=== PATIENT | male | born 1980 | race Caucasian/White ===

== ENCOUNTER 2017-06-21 21:08 | Emergency (ER) | payer OTHER ==
--- NOTE | 2017-06-21 21:12 | PDOC ---
Rapid Medical Evaluation Time Seen by Provider: 06/21/17 21:10 Medical Evaluation: 06/21/17 21:11 I have performed a brief in-person evaluation of this patient. The patient presents with a chief complaint of:lt thumb laceration while opening a can Pertinent physical exam findings: 2.5 cm lac to medial aspect of left 1st digit. Last tdap 3 yrs ago I have ordered the following:none The patient will proceed to the ED for further evaluation.
[2017-06-21 21:13] VITALS: BP 147/93; PULSE 85; TEMP 97.7; BMI 31.3
--- NOTE | 2017-06-21 22:18 | PDOC ---
History of Present Illness - General Chief Complaint: Laceration Stated Complaint: LACERATION Time Seen by Provider: 06/21/17 21:10 History Source: Patient Exam Limitations: No Limitations - History of Present Illness Initial Comments: 06/21/17 22:13 36 yr male with laceration to the left thumb on can of cat food. tetanus is UTD Past History - Past Medical History Home Medications: Ambulatory Orders Buprenorphine HCl [Subutex -] 8 mg PO TID 06/21/17 Sertraline HCl [Zoloft] 200 mg PO DAILY 06/21/17 COPD: No Other medical history: kidney stones - Suicide/Smoking/Psychosocial Hx Smoking History: Current every day smoker Number of Cigarettes Smoked Daily: 10 Information on smoking cessation initiated: No Review of Systems - Review of Systems Able to Perform ROS?: Yes Is the patient limited Maldivian proficient: No : No: Symptoms Reported Musculoskeletal: No: See HPI Integumentary: Yes: Symptoms Reported, See HPI Neurological: No: Symptoms reported *Physical Exam - Vital Signs Last Vital Signs Temp Pulse Resp BP Pulse Ox 97.7 F 85 18 147/93 98 06/21/17 21:12 06/21/17 21:12 06/21/17 21:12 06/21/17 21:12 06/21/17 21:12 - Physical Exam General Appearance: Yes: Nourished, Appropriately Dressed HEENT: positive: EOMI, [place] Musculoskeletal: positive: Normal Inspection Extremity: positive: Normal Capillary Refill, Other (left thumb laceration to the medial side of the thumb longitudinal , FROM nv intact no tendon damage) Integumentary: positive: Normal Color, Dry, Warm Neurologic: positive: Fully Oriented, Alert, Normal Mood/Affect, Normal Response , Motor Strength 5/5 Procedures - Laceration/Wound Repair Left Medial 1st digit Wound Length: to 2.5 cm Wound Explored: clean Wound's Depth, Shape: linear, flap Betadine Prep: Yes Anesthesia: 2% Lidocaine (digital block ) Wound Repaired With: Sutures Suture Size/Type: 4:0, nylon Number of Sutures: 4 Sterile Dressing Applied: Yes Medical Decision Making - Medical Decision Making 06/21/17 22:15 cc: finger lac nv intact sensation intact FROM of the thumb suture repair done pt tolerated well bulky finger dressing placed *DC/Admit/Observation/Transfer Diagnosis at time of Disposition: Thumb laceration Qualifiers: Encounter type: initial encounter Damage to nail status: without damage Foreign body presence: without foreign body Laterality: left Qualified Code(s): S61.012A - Laceration without foreign body of left thumb without damage to nail , initial encounter - Discharge Dispostion Disposition: HOME Condition at time of disposition: Good - Referrals - Patient Instructions Printed Discharge Instructions: DI for Laceration Repair Additional Instructions: keep clean and dry do not get wet keep the dressing in place for 48hrs then remove gently clean with warm water on a cotton ball dry completely apply the bacitracin keep covered when sleeping and at work let the wound air out if you are at home return to ER if any worsening symptoms return in 10 days for suture removal - Post Discharge Activity
== END 2017-06-21 22:21 | disposition home or self-care (01) ==
LOC: JERFT 21:08
PROC: 0JQK0ZZ Repair Left Hand Subcutaneous Tissue and Fascia, Open Approach (ICD-10-PCS; principal; 2017-06-21)
DX: S61.012A Laceration without foreign body of left thumb without damage to nail, initial encounter (principal); W26.8XXA Contact with other sharp object(s), not elsewhere classified, initial encounter; Y93.K9 Activity, other involving animal care; Y92.038 Other place in apartment as the place of occurrence of the external cause; Y99.8 Other external cause status
CPT/HCPCS: 12001-25; 99281-25

== ENCOUNTER 2017-07-25 13:32 | Emergency (ER) | payer OTHER ==
[2017-07-25 13:38] VITALS: BP 116/71; PULSE 87; TEMP 98.1; BMI 31.3
[2017-07-25] MEDS ORDERED: ONDANSETRON *ODT* 4 MG TABLET SL ONE (14:59)
[2017-07-25] MEDS ORDERED: ONDANSETRON *ODT* 4 MG TABLET ONE (15:01)
--- NOTE | 2017-07-25 15:12 | PDOC ---
History of Present Illness <Alejandro Diaz - Last Filed: 07/25/17 15:00> - General History Source: Patient Exam Limitations: No Limitations - History of Present Illness Initial Comments: 07/25/17 16:14 The patient is a 36 year old male, with no significant past medical history who presents to the emergency department with diarrhea for the past 3 days. Patient reports several days of viral GI symptoms including nausea, diarrhea (non bloody ), crampy lower abdominal pain. Patient reports his abdominal pain is alleviated after defecation. Patient also endorses body aches, nasal congestion , clear rhinorrhea and cough. Patient denies taking any medications for relief and presents to the ED for further evaluation. Patient denies chest pain, headache or dizziness. Patient denies fever, chills, vomit, constipation. Patient denied any recent antibiotic use. Patient denies dysuria, frequency, urgency or hematuria. Patient denies sick contacts or recent travel. Allergies: Diphenhydramine Past surgical history: None Social history: Current everyday smoker, opioid abuse PCP: Dr. London <Nisha Rojas - Last Filed: 07/25/17 16:15> - General Chief Complaint: Cold Symptoms Stated Complaint: Congestion, cough, pain on chest when cough Time Seen by Provider: 07/25/17 13:49 Past History - Past Medical History COPD: No Psychiatric Problems: Yes (depression) Other medical history: opoid addiction - Surgical History Abdominal Surgery: No Appendectomy: No Cardiac Surgery: No Cholecystectomy: No Gastric Stapling: No GI Surgery: No Lung Surgery: No Neurologic Surgery: No - Suicide/Smoking/Psychosocial Hx Smoking History: Current every day smoker Number of Cigarettes Smoked Daily: 10 Information on smoking cessation initiated: Yes 'Breaking Loose' booklet given: 07/25/17 Hx Alcohol Use: No Drug/Substance Use Hx: No (opiods) Substance Use Type: None <Alejandro Diaz - Last Filed: 07/25/17 15:00> <Nisha Rojas - Last Filed: 07/25/17 16:15> - Past Medical History Allergies/Adverse Reactions: Allergies Allergy/AdvReac Type Severity Reaction Status Date / Time diphenhydramine Allergy Verified 07/25/17 13:38 [From Benhelenl] Home Medications: Ambulatory Orders Buprenorphine HCl [Subutex -] 8 mg PO TID 06/21/17 Sertraline HCl [Zoloft] 150 mg PO DAILY 06/21/17 Ondansetron [Zofran Odt -] 4 mg SL BID PRN #14 od.tablet 07/25/17 Review of Systems - Review of Systems Constitutional: Yes: Chills. No: Fever HEENTM: Yes: Nose Congestion. No: Throat Pain, Throat Swelling Respiratory: Yes: Cough. No: Shortness of Breath, SOB with Exertion Cardiac (ROS): No: Chest Pain, Syncope ABD/GI: Yes: Diarrhea, Nausea. No: Blood Streaked Bowels, Vomiting : No: Dysuria Musculoskeletal: Yes: Muscle Pain. No: Muscle Weakness Neurological: No: Headache, Weakness All Other Systems: Reviewed and Negative <Alejandro Diaz - Last Filed: 07/25/17 15:00> *Physical Exam - Vital Signs Last Vital Signs Temp Pulse Resp BP Pulse Ox 98.1 F 87 18 116/71 99 07/25/17 13:35 07/25/17 13:35 07/25/17 13:35 07/25/17 13:35 07/25/17 13:35 <Alejandro Diaz - Last Filed: 07/25/17 15:00> - Vital Signs Last Vital Signs Temp Pulse Resp BP Pulse Ox 98.1 F 87 18 116/71 99 07/25/17 13:35 07/25/17 13:35 07/25/17 13:35 07/25/17 13:35 07/25/17 13:35 - Physical Exam Comments: 07/25/17 16:14 GENERAL: The patient is awake, alert, and fully oriented, in no acute distress. HEAD: Normal with no signs of trauma. EYES: Pupils equal, round and reactive to light, extraocular movements intact, sclera anicteric, conjunctiva clear with no pallor. ENT: Ears normal, nares patent, oropharynx clear without exudates. +Dry mucous membranes. NECK: Normal range of motion, supple without lymphadenopathy, JVD, or masses. LUNGS: Breath sounds equal, clear to auscultation bilaterally. No wheeze/ crackles. HEART: Regular rate and rhythm, normal S1 and S2 without murmur or rub. ABDOMEN: Soft/nontender/nondistended. BS wnl. No guarding or rebound. No palpable masses. No hepatosplenomegaly. EXTREMITIES: Normal range of motion, no edema. No clubbing or cyanosis. No cords, erythema, or tenderness. NEUROLOGICAL: Cranial nerves II through XII grossly intact. Normal speech, normal gait. PSYCH: Normal mood, normal affect. SKIN: Warm, Dry, normal turgor, no rashes or lesions noted. <Nisha Rojas - Last Filed: 07/25/17 16:15> Heart Score/ECG Review #1 ECG reviewed & interpreted by me at: 13:38 General ECG Interpretation: Sinus Rhythm, Normal Rate (73), Normal Intervals ( qtc 412), No acute ischemic changes <Alejandro Diaz - Last Filed: 07/25/17 15:00> ED Treatment Course - Medications Given in the ED: ED Medications Discontinued Medications Generic Name Dose Route Start Last Admin Trade Name Freq PRN Reason Stop Dose Admin Ondansetron HCl 4 mg 07/25/17 14:59 07/25/17 15:03 Zofran Odt - SL 07/25/17 15:00 4 mg ONCE ONE Administration <Nisha Rojas - Last Filed: 07/25/17 16:15> Medical Decision Making - Medical Decision Making 07/25/17 15:01 A portion of this note was documented by scribe services under my direction. I have reviewed the details of the note, within reason, and agree with the documentation with the following case summary and management plan written by me. Healthy 36-year-old male presents with 2-3 days of viral symptoms of nasal congestion, dry cough, diarrhea. Presents today predominantly because of persistent diarrhea, which is nonbloody. No fevers or chills, no persistent abdominal pain, no recent travel or sick contacts or antibiotics. No history of recurrent GI infections. VSS, well appearing seated in stretcher speaking full sentences slightly dry mucosa, op clear s1s2 rrr, ctab abd soft/nt/nd bs nl. no rash no edema neuro nl Healthy 36-year-old male with presentation most consistent with viral syndrome, mild URI and diarrheal symptoms. Well-hydrated, vital signs normal, not septic appearing. Exam is not localizing for acute infectious process such as pneumonia or colitis/appendicitis. No indication for further workup at this time Zofran for nausea EKG was performed in triage and is normal Patient agrees with discharge plan on supportive medications, understands return criteria. <Alejandro Diaz - Last Filed: 07/25/17 15:00> *DC/Admit/Observation/Transfer <Alejandro Diaz - Last Filed: 07/25/17 15:00> - Attestations Scribe Attestion: 07/25/17 16:14 Documentation prepared by Nisha Rojas, acting as medical appointment clerk for Alejandro Diaz MD <Nisha Rojas - Last Filed: 07/25/17 16:15> Diagnosis at time of Disposition: Diarrhea Qualifiers: Diarrhea type: unspecified type Qualified Code(s): R19.7 - Diarrhea, unspecified - Discharge Dispostion Disposition: HOME Condition at time of disposition: Stable - Prescriptions Prescriptions: Ondansetron [Zofran Odt -] 4 mg SL BID PRN #14 od.tablet PRN Reason: Nausea - Referrals Referrals: Vahe London MD [Primary Care Provider] - - Patient Instructions Printed Discharge Instructions: DI for Viral Upper Respiratory Infection -- Adult, DI for Diarrhea and Traveler's Diarrhea -- Adult Additional Instructions: Activity as tolerated. Stay hydrated. Tylenol 1000 mg every 8 hours and/or ibuprofen 600 mg every 8 hours as needed for fever/aches. Advance diet as tolerated, avoiding fatty foods and focusing on bananas, rice, applesauce, toast. Continue your medications as previously prescribed by your physician. Take Zofran as prescribed as needed for nausea, take Imodium [id number] as needed for diarrhea. You should follow up with your primary doctor as soon as possible regarding today's emergency department visit. Return to the emergency department for any new or concerning symptoms, particularly persistent or worsening diarrhea or dehydration, high fevers or chills, persistent or worsening abdominal pain, bloody vomit or stool. - Post Discharge Activity
--- NOTE | 2017-08-10 13:26 | EKG ---
Test Reason : Blood Pressure : / mmHG Vent. Rate : 073 BPM Atrial Rate : 073 BPM P-R Int : 172 ms QRS Dur : 088 ms QT Int : 374 ms P-R-T Axes : 055 033 039 degrees QTc Int : 412 ms NORMAL SINUS RHYTHM NORMAL ECG NO PREVIOUS ECGS AVAILABLE Confirmed by SABIHA ALLEN MD ([id number]) on 08/10/2017 1:25:44 PM Referred By: Confirmed By:SABIHA ALLEN MD
== END 2017-07-25 15:18 | disposition home or self-care (01) ==
LOC: JER 13:32
DX: B34.9 Viral infection, unspecified (principal); R19.7 Diarrhea, unspecified; F17.210 Nicotine dependence, cigarettes, uncomplicated; F32.9 Major depressive disorder, single episode, unspecified
CPT/HCPCS: 93005; 93010; 99282-25

== ENCOUNTER 2018-04-03 20:34 | Emergency (ER) | payer OTHER ==
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
[2018-04-03 21:04] VITALS: BP 133/61; PULSE 98; TEMP 98.8; BMI 31.3
== END 2018-04-03 21:00 | disposition left against medical advice (07) ==
LOC: JER 20:34
DX: Z53.21 Procedure and treatment not carried out due to patient leaving prior to being seen by health care provider (principal)
CPT/HCPCS: 99281-25

== ENCOUNTER 2018-07-13 11:25 | Emergency (ER) | payer OTHER ==
[2018-07-13 11:47] VITALS: BP 130/74; PULSE 83; TEMP 98.8; BMI 33.2
[2018-07-13] MEDS ORDERED: ALBUTEROL SO4 2.5/IPRATROPIUM 0.5 INH SOL 3 ML VIAL.NEB. NEB ONE ×3 (12:30→13:14)
--- NOTE | 2018-07-13 12:36 | PDOC ---
History of Present Illness - General Chief Complaint: Cold Symptoms Stated Complaint: FEVER Time Seen by Provider: 07/13/18 11:56 History Source: Patient Exam Limitations: No Limitations - History of Present Illness Initial Comments: 07/13/18 12:32 37 yr male with c/o cough body aches fever . pt is a smoker history of drug use in the past. Pt also c/o increase thirst no DM history. Pt denies alcohol use. 07/13/18 19:45 Past History - Past Medical History Allergies/Adverse Reactions: Allergies Allergy/AdvReac Type Severity Reaction Status Date / Time diphenhydramine Allergy Verified 07/13/18 11:40 [From Benadryl] Home Medications: Ambulatory Orders Buprenorphine HCl [Subutex -] 8 mg PO TID 06/21/17 Sertraline HCl [Zoloft] 150 mg PO DAILY 06/21/17 Albuterol Sulfate Inhaler - [Ventolin HFA Inhaler -] 1 - 2 inh PO Q4H #1 inhaler 07/13/18 Azithromycin [Zithromax 250mg Tablets -] 250 mg PO UTDICT #6 tab 07/13/18 Brexpiprazole [Rexulti] mg PO ASDIR 07/13/18 Clonidine HCl [Catapres] mg PO ASDIR 07/13/18 Prednisone [Deltasone] 40 mg PO DAILY #10 tablet 07/13/18 COPD: No DVT: No Kidney Stones: Yes Psychiatric Problems: Yes (depression) - Surgical History Abdominal Surgery: No Appendectomy: No Cardiac Surgery: No Cholecystectomy: No Gastric Stapling: No GI Surgery: No Lung Surgery: No Neurologic Surgery: No - Suicide/Smoking/Psychosocial Hx Smoking History: Current every day smoker Number of Cigarettes Smoked Daily: 10 Information on smoking cessation initiated: No 'Breaking Loose' booklet given: 04/03/18 Hx Alcohol Use: No Drug/Substance Use Hx: No Substance Use Type: None Respiratory Specific PMHX - Complaint Specific PMHX Bronchitis: Yes Review of Systems - Review of Systems Able to Perform ROS?: Yes Is the patient limited Hong Konger proficient: No Constitutional: Yes: Symptoms Reported, Fever HEENTM: Yes: Nose Congestion Respiratory: Yes: Cough *Physical Exam - Vital Signs Last Vital Signs Temp Pulse Resp BP Pulse Ox 98.8 F 83 18 130/74 98 07/13/18 11:40 07/13/18 11:40 07/13/18 11:40 07/13/18 11:40 07/13/18 11:40 - Physical Exam General Appearance: Yes: Nourished, Appropriately Dressed HEENT: positive: EOMI, [place], TMs Normal, Pharynx Normal Neck: positive: Supple Respiratory/Chest: positive: Rhonchi, Wheezing Cardiovascular: positive: Regular Rhythm, Regular Rate Musculoskeletal: positive: Normal Inspection Extremity: positive: Normal Capillary Refill, Normal Inspection, Normal Range of Motion Integumentary: positive: Normal Color, Dry, Warm Neurologic: positive: Fully Oriented, Alert, Normal Mood/Affect, Normal Response , Motor Strength 5/5 Moderate Sedation - Procedure Monitoring Vital Signs: Procedure Monitoring Vital Signs Temperature 98.8 F 07/13/18 11:40 Pulse Rate 83 07/13/18 11:40 Respiratory Rate 18 07/13/18 11:40 Blood Pressure 130/74 07/13/18 11:40 O2 Sat by Pulse Oximetry (%) 98 07/13/18 11:40 ED Treatment Course - RADIOLOGY Radiology Studies Ordered: Category Date Time Status CHEST PA & LAT [RAD] Stat Radiology 07/13/18 12:31 Ordered Medical Decision Making - Medical Decision Making 07/13/18 12:35 cc: cough nasal congestion body aches, fever, increased thirst took tylenol last night will give duoneb , CXR pt felt better after 2 duonebs lungs have cleared up no rhonchi or wheezing will dc home with strict follow up 07/13/18 19:46 *DC/Admit/Observation/Transfer Diagnosis at time of Disposition: Bronchitis - Discharge Dispostion Disposition: HOME Condition at time of disposition: Good - Prescriptions Prescriptions: Albuterol Sulfate Inhaler - [Ventolin HFA Inhaler -] 1 - 2 inh PO Q4H #1 inhaler Azithromycin [Zithromax 250mg Tablets -] 250 mg PO UTDICT #6 tab Prednisone [Deltasone] 40 mg PO DAILY #10 tablet - Referrals Referrals: Vahe London MD [Primary Care Provider] - - Patient Instructions Printed Discharge Instructions: DI for Acute Bronchitis Additional Instructions: use the albuterol inhlaer take the prednisone as directed take the Zpack as directed drink at least 2 liters of water a day take tylenol as needed for pain follow up with your doctor for further care in 2-3 days for follow up - Post Discharge Activity
[2018-07-13 12:59] LABS: URINE APPEARANCE CLEAR; URINE BILIRUBIN NEGATIVE (<2.0 mg/dL); URINE COLOR LTYELLOW; URINE GLUCOSE (UA) NEGATIVE (NEGATIVE); URINE KETONE NEGATIVE (NEGATIVE); URINE LEUK ESTERASE NEGATIVE (NEGATIVE); URINE NITRITE NEGATIVE (NEGATIVE); URINE PROTEIN NEGATIVE (NEGATIVE); URINE UROBILINOGEN NEGATIVE mg/dL (0.2-1.0)
[2018-07-13] MEDS ORDERED: ALBUTEROL SO4 2.5/IPRATROPIUM 0.5 INH SOL 3 ML VIAL.NEB. NEB STA (13:12)
== END 2018-07-13 13:32 | disposition home or self-care (01) ==
LOC: JERFT 11:25
PROC: 3E0F7GC Introduction of Other Therapeutic Substance into Respiratory Tract, Via Natural or Artificial Opening (ICD-10-PCS; principal; 2018-07-13)
DX: J40 Bronchitis, not specified as acute or chronic (principal); F17.210 Nicotine dependence, cigarettes, uncomplicated; F32.9 Major depressive disorder, single episode, unspecified; N20.0 Calculus of kidney
CPT/HCPCS: 71046-TC-FY; 81003; 99281-25

== ENCOUNTER 2018-08-10 17:35 | Emergency (ER) | payer OTHER ==
[2018-08-10 17:53] VITALS: BP 119/66; PULSE 79; TEMP 98.3; BMI 33.2
--- NOTE | 2018-08-10 18:48 | PDOC ---
History of Present Illness - General Chief Complaint: Abscess Boil Stated Complaint: LEFT LEG Abscess Boil Time Seen by Provider: 08/10/18 18:32 History Source: Patient - History of Present Illness Initial Comments: 08/10/18 18:53 Patient with no significant past medication present with complaint of redness and abscess to left lower leg for 5 days. Patient reported increased pain to touch of abscess area. Patient denies fever now or any other symptoms. Timing/Duration: other (5 days) Past History - Past Medical History Allergies/Adverse Reactions: Allergies Allergy/AdvReac Type Severity Reaction Status Date / Time diphenhydramine Allergy Verified 07/13/18 11:40 [From Benadl] Home Medications: Ambulatory Orders Buprenorphine HCl [Subutex -] 8 mg PO TID 06/21/17 Sertraline HCl [Zoloft] 150 mg PO DAILY 06/21/17 Albuterol Sulfate Inhaler - [Ventolin HFA Inhaler -] 1 - 2 inh PO Q4H #1 inhaler 07/13/18 Azithromycin [Zithromax 250mg Tablets -] 250 mg PO UTDICT #6 tab 07/13/18 Brexpiprazole [Rexulti] mg PO ASDIR 07/13/18 Clonidine HCl [Catapres] mg PO ASDIR 07/13/18 Prednisone [Deltasone] 40 mg PO DAILY #10 tablet 07/13/18 Cephalexin Monohydrate [Keflex -] 500 mg PO BID 7 Days #14 capsule 08/10/18 Mupirocin Ointment [Bactroban 2% Ointment -] 1 applic TP BID #1 tube 08/10/18 Sulfamethoxazole/Trimethoprim [Bactrim Ds -] 1 tab PO BID #14 tablet 08/10/18 COPD: No DVT: No Kidney Stones: Yes Psychiatric Problems: Yes (depression) - Surgical History Abdominal Surgery: No Appendectomy: No Cardiac Surgery: No Cholecystectomy: No Gastric Stapling: No GI Surgery: No Lung Surgery: No Neurologic Surgery: No - Immunization History Immunization Up to Date: Yes - Suicide/Smoking/Psychosocial Hx Smoking History: Current every day smoker Number of Cigarettes Smoked Daily: 10 Information on smoking cessation initiated: No 'Breaking Loose' booklet given: 04/03/18 Hx Alcohol Use: No Drug/Substance Use Hx: No Substance Use Type: None Review of Systems - Review of Systems Able to Perform ROS?: Yes Is the patient limited Pashto proficient: No Constitutional: No: Fever, Weakness HEENTM: No: Symptoms Reported Respiratory: No: Symptoms reported Cardiac (ROS): No: Symptoms Reported ABD/GI: No: Nausea, Vomiting Musculoskeletal: Yes: Muscle Pain (munson of left leg over abscess area) Integumentary: Yes: Erythema (around abscess area), Lumps (abscess of left lower leg) Neurological: No: Tingling, Dizziness All Other Systems: Reviewed and Negative *Physical Exam - Vital Signs Last Vital Signs Temp Pulse Resp BP Pulse Ox 98.3 F 79 16 119/66 98 08/10/18 17:47 08/10/18 17:47 08/10/18 17:47 08/10/18 17:47 08/10/18 17:47 - Physical Exam Comments: 08/10/18 18:55 GENERAL: Well developed, well nourished. Awake and alert. No acute distress. CARDIOVASCULAR: Regular rate and rhythm. No murmurs, rubs, or gallops. PULMONARY: No evidence of respiratory distress. Lungs clear to auscultation bilaterally. No wheezing, rales or rhonchi. ABDOMINAL: Soft. Non-tender. Non-distended. No rebound or guarding. No organomegaly. Normoactive bowel sounds MUSCULOSKELETAL : moderate tenderness over munson of left leg with 2cm non- draining abscess with surround erythema. SKIN: mild increased warmth surround 2cm fluctuant induration with moderate surrounding erythema c/w cellulitis NEUROLOGICAL: Alert, awake, appropriate. No motor deficits in the lower extremities. Gait is normal without ataxia. PSYCHIATRIC: Cooperative. Good eye contact. Appropriate mood and affect. General Appearance: Yes: Nourished, Appropriately Dressed. No: Apparent Distress Moderate Sedation - Procedure Monitoring Vital Signs: Procedure Monitoring Vital Signs Temperature 98.3 F 08/10/18 17:47 Pulse Rate 79 08/10/18 17:47 Respiratory Rate 16 08/10/18 17:47 Blood Pressure 119/66 08/10/18 17:47 O2 Sat by Pulse Oximetry (%) 98 08/10/18 17:47 Medical Decision Making - Medical Decision Making 08/10/18 18:58 Patient present with complain of abscess to munson of left leg and redness to skin around abscess area. Exam significant for 2 cm nondraining skin abscess with surrounding erythema and mild increased warmth consistent with cellulitis of left leg. Patient wishes to be treated with by mouth antibiotics and hold off on I&D of abscess. Discussed with patient home wound care and strict follow-up. Patient discharge on Bactrim and Keflex antibiotics with topical Bactroban cream and PCP or dermatology follow-up in 3 days for reassessment. Patient advice to come back to emergency room if worsening redness of fevers. *DC/Admit/Observation/Transfer Diagnosis at time of Disposition: Cellulitis of left lower extremity without foot - Discharge Dispostion Disposition: HOME Condition at time of disposition: Stable Decision to Admit order: No - Prescriptions Prescriptions: Cephalexin Monohydrate [Keflex -] 500 mg PO BID 7 Days #14 capsule Mupirocin Ointment [Bactroban 2% Ointment -] 1 applic TP BID #1 tube Sulfamethoxazole/Trimethoprim [Bactrim Ds -] 1 tab PO BID #14 tablet - Referrals Referrals: Vahe London MD [Primary Care Provider] - Linda Diaz MD [Staff Physician] - - Patient Instructions Printed Discharge Instructions: DI for Cellulitis -- Adult Additional Instructions: Take medication as prescribed. Apply warm compress to abscess area 2-3 times a day for 5 minutes. Follow-up with primary care in 3 days for wound check or see referred dermatology for follow-up if cannot see primary care. Come back to ED if worsening redness or fevers - Post Discharge Activity
== END 2018-08-10 18:52 | disposition home or self-care (01) ==
LOC: JERFT 17:35
DX: L03.116 Cellulitis of left lower limb (principal); F32.9 Major depressive disorder, single episode, unspecified; F17.210 Nicotine dependence, cigarettes, uncomplicated; Z87.442 Personal history of urinary calculi
CPT/HCPCS: 99281-25

== ENCOUNTER 2019-02-12 14:33 | Inpatient (IN) | payer OTHER ==
[2019-02-12 17:26] VITALS: BMI 26.7
--- NOTE | 2019-02-12 19:42 | HP ---
COWS - Scale Resting Pulse: 0= [place] 80 or Below Sweatin=Flushed/Facial Moisture Restless Observation: 0= Sits Still Pupil Size: 0= Normal to Room Light Bone or Joint Aches: 2= Severe Diffuse Aches Runny Nose/ Eye Tearin= Runny Nose/Eyes GI Upset > 30mins: 2= Nausea/Diarrhea Tremor Observation: 2= Slight Tremor Visible Yawning Observation: 0= None Anxiety or Irritability: 2=Irritable/Anxious Goose Flesh Skin: 0=Smooth Skin COWS Score: 12 CIWA Score Nausea/Vomitin Muscle Tremors: 2 Anxiety: 3 Agitation: 2 Paroxysmal Sweats: 2 Orientation: 0-Oriented Tacttile Disturbances: 0-None Auditory Disturbances: 0-None Visual Disturbances: 0-None Headache: 1-Very Mild CIWA-Ar Total Score: 12 - Admission Criteria [facility] Guidelines: Admission for Medically Managed Detox: Requires at least one of the followin. CIWA greater than 12 2. Seizures within the past 24 hours 3. Delirium tremens within the past 24 hours 4. Hallucinations within the past 24 hours 5. Acute intervention needed for co occurring medical disorder 6. Acute intervention needed for co occurring psychiatric disorder 7. Severe withdrawal that cannot be handled at a lower level of care (continued vomiting, continued diarrhea, abnormal vital signs) requiring intravenous medication and/or fluids 8. Admission ROS [facility] Chief Complaint: seeking help for heroin and alcohol use Allergies/Adverse Reactions: Allergies Allergy/AdvReac Type Severity Reaction Status Date / Time buprenorphine [From Suboxone] Allergy Severe Hives Verified 02/12/19 17:17 diphenhydramine Allergy Severe Difficulty Verified 02/12/19 17:17 [From Benadryl] Breathing naloxone [From Suboxone] Allergy Severe Hives Verified 02/12/19 17:17 History of Present Illness: 38 y/o/m here seeking help for alcohol and heroin use. He was sober for 3 years from 2014 until 2 months ago when he started using alcohol and heroin due to personal stress in his life. His longest period of sobriety was from 1997 to 2007 when he was on Methadone. He was on Subutex from 2014 until 2 months ago. He has been using heroin for the last 2 months but for the last 2 weeks he has been 10-20 bags of heroin daily which he uses by injecting. He has been drinking a half a pint to a pint of liquor a day. He has been taking Klonopin for anxiety. He was being prescribed Klonopin, Xoloft, and Concerta by his doctor at [facility]. He states he has been taking these medications sporadically throughout the week and not as prescribed. He is currently smoking a half a pack of cigarettes daily. He states he smokes Marijuana once a month. He is on probation for domestic violence, he has 6 months of probation remaining. He is currently living in his own apartment and is unemployed. He denies any PMHx or SHx. DUR report shows he last picked up Buprenophine 8mg on 12/27, Clonazepma 0.5mg on 12/27, and Methylphenidate ER 27mg on 12/11. - Ebola screening Have you traveled outside of the country in the last 21 days: No Have you had contact with anyone from an Ebola affected area: No Do you have a fever: No - Review of Systems Constitutional: Chills, Loss of Appetite EENT: reports: Nose Congestion Respiratory: reports: Cough, Shortness of Breath Cardiac: denies: Chest Pain, Lightheadedness GI: reports: Diarrhea, Nausea, Vomiting. denies: Constipated Musculoskeletal: reports: Back Pain Integumentary: reports: No Symptoms Reported Neuro: reports: Headache Psychiatric: reports: Agitated, Anxious, Depressed Other Systems: Reviewed and Negative Patient History - Patient Medical History Hx Anemia: No Hx Asthma: No Hx Chronic Obstructive Pulmonary Disease (COPD): No Hx Cancer: No Hx Cardiac Disorders: No Hx Congestive Heart Failure: No Hx Hypertension: No Hx Hypercholesterolemia: No Hx Pacemaker: No HX Cerebrovascular Accident: No Hx Seizures: No Hx Dementia: No Hx Diabetes: No Hx Gastrointestinal Disorders: No Hx Liver Disease: No Hx Genitourinary Disorders: No Hx Sexually Transmitted Disorders: No Hx Renal Disease (ESRD): No Hx Thyroid Disease: No Hx Human Immunodeficiency Virus (HIV): No (negative 2018) Hx Hepatitis C: No (negative 2018) Hx Depression: No Hx Suicide Attempt: No Hx Bipolar Disorder: No Hx Schizophrenia: No Other Medical History: no suicidal or homicidal ideations - Patient Surgical History Hx Neurologic Surgery: No Hx Cataract Extraction: No Hx Cardiac Surgery: No Hx Lung Surgery: No Hx Abdominal Surgery: No Hx Appendectomy: No Hx Cholecystectomy: No Hx Genitourinary Surgery: No Hx Section: No Hx Orthopedic Surgery: No Hx Hysterectomy: No Anesthesia Reaction: No - PPD History Previous Implant?: Yes Documented Results: Negative w/o proof Implanted On Prior [facility] Admission?: No Date: 02/04/18 PPD to be Administered?: Yes - Smoking Cessation Smoking history: Current every day smoker Aproximately how many cigarettes per day: 10 Hx Chewing Tobacco Use: No Initiated information on smoking cessation: Yes 'Breaking Loose' booklet given: 02/12/19 - Substance & Tx. History Hx Alcohol Use: Yes Hx Substance Use: Yes Substance Use Type: Alcohol, Heroin - Substances abused Alcohol Substance route: Oral Frequency: Daily Amount used: 1/2 - 1 pint, 3 22 ounces/beer Age of first use: 14 Date of last use: 02/11/19 Heroin Substance route: Injection Frequency: Daily Amount used: 10-20 bags Age of first use: 17 Date of last use: 02/11/19 Alprazolam (Xanax) Substance route: Oral Frequency: Daily Amount used: 1mg Age of first use: 23 Date of last use: 02/11/19 Benzodiazepine (Klonopin) Substance route: Oral Frequency: Daily Amount used: 1mg Age of first use: 23 Date of last use: 02/12/19 Family Disease History - Family Disease History Family History: Denies Admission Physical Exam [facility] - Vital Signs Vital Signs: Vital Signs - 24 hr 02/12/19 02/12/19 17:14 18:35 Temperature 98.0 F 98.0 F Pulse Rate 57 L 57 L Respiratory 18 18 Rate Blood Pressure 119/67 119/67 - Physical General Appearance: Yes: Disheveled, Sweating HEENTM: Yes: EOMI, Normocephalic, Rhinorrhea Respiratory: Yes: No Accessory Muscle Use, Wheezing (bilaterally) Neck: Yes: Supple Cardiology: Yes: Regular Rhythm, Regular Rate, S1, S2 Abdominal: Yes: Soft, Tenderness (diffuse tenderness to palpation) Musculoskeletal: Yes: Gait Steady Extremities: Yes: Normal Capillary Refill Neurological: Yes: wedger machine II-XII NML intact, Fully Oriented, Alert, Motor Strength 5/5 Integumentary: Yes: Dry, Track Díaz (track díaz noted on the neck) - Diagnostic (1) Alcohol use disorder Current Visit: Yes Status: Acute (2) Heroin use disorder, mild, abuse Current Visit: Yes Status: Acute (3) Benzodiazepine abuse Current Visit: Yes Status: Acute Cleared for Admission [facility] - Detox or Rehab [facility] Level of Care: Medically Managed Detox Regimen/Protocol: Methadone/Librium Breathalyzer - Breathalyzer Breathalyzer: 0.027 Urine Drug Screen - Test Device Lot number: [id number] Expiration date: 12/05/20 - Control Is test valid?: Yes - Results Drug screen NEGATIVE: No Urine drug screen results: THC-Marijuana, FEN-Fentanyl, MOP-Opiates, BUP- Suboxone Inpatient Rehab Admission - Rehab Decision to Admit Inpatient rehab admission?: No
[2019-02-12] MEDS ORDERED: ACETAMINOPHEN 325 MG TABLET (FP) PO PRN ×2 (20:24)
[2019-02-12] MEDS ORDERED: METHADONE HCL 10 MG TABLET (FOR DETOX USE ONLY) PO ONE (20:24)
[2019-02-12] MEDS ORDERED: MENTHOL/PHENOL 1 EACH UD MM PRN (20:24)
[2019-02-12] MEDS ORDERED: hydrOXYzine PAMOATE 25 MG CAPSULE (FP) PO PRN (20:24)
[2019-02-12] MEDS ORDERED: chlordiazePOXIDE HCL 25 MG CAPSULE PO PRN (20:24)
[2019-02-12] MEDS ORDERED: IBUPROFEN 400 MG TABLET (FP) PO PRN (20:24)
[2019-02-12] MEDS ORDERED: METHOCARBAMOL 500 MG TABLET PO PRN (20:24)
[2019-02-12] MEDS ORDERED: MAGNESIUM CITRATE 300 ML BOTTLE PO PRN (20:24)
[2019-02-12] MEDS ORDERED: MAGNESIUM HYDROX 2400MG/30ML ORAL SUSPENSION 30 ML CUP PO PRN (20:24)
[2019-02-12] MEDS ORDERED: MAG HYDROX/AL HYDROX/SIMETH 30 ML UNIT-DOSE CUP PO PRN (20:24)
[2019-02-12] MEDS ORDERED: cloNIDine HCL 0.1 MG TABLET PO PRN (20:24)
[2019-02-12] MEDS ORDERED: BISMUTH SUBSALICYLATE 524 MG/30 ML UD PO PRN (20:24)
[2019-02-12] MEDS ORDERED: MELATONIN 5 MG TABLETS PO PRN (20:24)
[2019-02-12] MEDS: THIAMINE HCL 100 MG TABLET (FP) PO SCH (21:40)
[2019-02-12] MEDS: chlordiazePOXIDE HCL 25 MG CAPSULE PO SCH (23:13)
[2019-02-13] MEDS: chlordiazePOXIDE HCL 25 MG CAPSULE PO SCH ×4 (06:06→22:11)
[2019-02-13] MEDS ORDERED: METHADONE HCL 5 MG TABLET (FOR DETOX USE ONLY) ONE (09:29)
[2019-02-13] MEDS ORDERED: METHADONE HCL 10 MG TABLET (FOR DETOX USE ONLY) ONE (09:29)
--- NOTE | 2019-02-13 09:56 | CONSULT ---
[facility] Psychiatric Consult - Data Date of interview: 02/13/19 Admission source: [facility] Identifying data: Patient is a 38 year old single male, father of one, unemployed, domiciled, and is supported by girlfriend. Patient admitted to for opiate dependence. Substance Abuse History: Smoking Cessation. Smoking history: Current every day smoker. Aproximately how many cigarettes per day: 10. Hx Chewing Tobacco Use: No. Initiated information on smoking cessation: Yes. 'Breaking Loose' booklet given: 02/12/19. - Substance & Tx. History. Hx Alcohol Use: Yes. Hx Substance Use: Yes. Substance Use Type: Alcohol, Heroin. - Substances abused. Alcohol. Substance route: Oral. Frequency: Daily. Amount used: 1/2 - 1 pint, 3 22 ounces/beer. Age of first use: 14. Date of last use: 02/11/19. Heroin. Substance route: Injection. Frequency: Daily. Amount used: 10-20 bags. Age of first use: 17. Date of last use: 02/11/19. Alprazolam (Xanax) . Substance route: Oral. Frequency: Daily. Amount used: 1mg. Age of first use: 23. Date of last use: 02/11/19. Benzodiazepine (Klonopin). Substance route: Oral. Frequency: Daily. Amount used: 1mg. Age of first use: 23. Date of last use: 02/12/19 Medical History: Denies. endorses good health. Psychiatric History: Patient reports h/o multiple psychiatric hospitalizations, most recently in the summer 2017 at [facility] after having a suicide attempt by cutting his wrist. He reports additional hospitalization at [facility] and [facility]. Mr. Shields reports past history of outpatient psychiatric care at [facility] outpatient clinic. States he last saw the psychiatrist two months ago. States he was prescribed concerta, rixulti, zoloft, klonopin and subutex. Reports last taking medications two months ago. Diagnosis of ADHD, Generalized anxiety disorder and MDD. At present, patient reports difficulty sleeping. States he plans on seeing his psychiatrist again after detox in hopes of possibly resuming psychotropic medications. Physical/Sexual Abuse/Trauma History: denies. Mental Status Exam - Mental Status Exam Alert and Oriented to: Time, Place, Person Cognitive Function: Good Patient Appearance: Well Groomed Mood: Euthymic Affect: Appropriate Patient Behavior: Cooperative Speech Pattern: Appropriate Voice Loudness: Normal Thought Process: Goal Oriented Thought Disorder: Not Present Hallucinations: Denies Suicidal Ideation: Denies Homicidal Ideation: Denies Insight/Judgement: Poor Sleep: Poorly Appetite: Fair Muscle strength/Tone: Normal Gait/Station: Normal Psychiatric Findings - Problem List ([place] 1, 2,3) (1) Substance-induced sleep disorder Current Visit: Yes Status: Acute (2) Alcohol use disorder Current Visit: Yes Status: Acute (3) Benzodiazepine abuse Current Visit: Yes Status: Acute (4) Heroin use disorder, mild, abuse Current Visit: Yes Status: Acute (5) ADHD Current Visit: No Status: Chronic (6) Substance induced mood disorder Current Visit: No Status: Acute (7) Personality disorder Current Visit: No Status: Suspected - Initial Treatment Plan Initial Treatment Plan: Psychoeducation provided. Detoxification in progress. Will order Belsomra 10mg HS. Benefits and side effects discussed. Verbal consent given.
[2019-02-13] MEDS ORDERED: METHADONE (DETOX) 20 MG, METHADONE (DETOX) 5 MG PO ONE (10:00)
[2019-02-13] MEDS: PRENATAL VITAMINS W/ FOLIC ACID TABLET (FP) PO SCH (10:24)
[2019-02-13] MEDS: NICOTINE 14 MG/24 HOURS TOPICAL PATCH TD PRN (10:27)
--- NOTE | 2019-02-13 11:15 | PN ---
[facility] CIWA - CIWA Score Nausea/Vomitin-Mild Nausea/No Vomiting Muscle Tremors: 2 Anxiety: 2 Agitation: 3 Paroxysmal Sweats: 1-Minimal Palms Moist Orientation: 0-Oriented Tacttile Disturbances: 0-None Auditory Disturbances: 0-None Visual Disturbances: 0-None Headache: 2-Mild CIWA-Ar Total Score: 11 S COWS - Scale Resting Pulse: 0= [place] 80 or Below Sweatin= Chills/Flushing Restless Observation: 0= Sits Still Pupil Size: 0= Normal to Room Light Bone or Joint Aches: 1= Mild Discomfort Runny Nose/ Eye Tearin= Nasal Congestion GI Upset > 30mins: 2= Nausea/Diarrhea Tremor Observation of Outstretched Hands: 2= Slight Tremor Visible Yawning Observation: 2= >3x During Session Anxiety or Irritability: 2=Irritable/Anxious Goose Flesh Skin: 0=Smooth Skin COWS Score: 11 [facility] Progress Note (SOAP) Subjective: tremor headaches trouble resting during the day and sleep at night Objective: 02/13/19 11:20 Vital Signs Temperature 98.4 F 02/13/19 09:16 Pulse Rate 54 L 02/13/19 09:16 Respiratory Rate 18 02/13/19 09:16 Blood Pressure 108/66 02/13/19 09:16 O2 Sat by Pulse Oximetry (%) 02/13/19 11:20 lab pending Assessment: 02/13/19 11:21 alcohol and opiate withdrawal sx Plan: continue alcohol and opiate detox
[2019-02-13 12:07] LABS: HEMATOCRIT 46.1 % (35.4-49); HEMOGLOBIN 15.6 GM/dL (11.7-16.9); MCH 30.8 pg (25.7-33.7); MCHC 33.9 g/dl (32.0-35.9); MEAN CELL VOLUME 90.8 fl (80-96); PLATELET COUNT 204 K/MM3 (134-434); RBC 5.07 M/mm3 (4.00-5.60); WHITE BLOOD COUNT 5.6 K/mm3 (4.0-10.0)
[2019-02-13 12:16] LABS: PH,URINE 8.5 (5.0-8.0); URINE APPEARANCE CLEAR; URINE BILIRUBIN NEGATIVE (NEGATIVE); URINE COLOR YELLOW; URINE GLUCOSE (UA) NEGATIVE (NEGATIVE); URINE KETONE NEGATIVE (NEGATIVE); URINE LEUK ESTERASE NEGATIVE (NEGATIVE); URINE NITRITE NEGATIVE (NEGATIVE); URINE PROTEIN NEGATIVE (NEGATIVE)
--- NOTE | 2019-02-13 13:12 | PN ---
Teaching Attending Note Name of Resident: Tasha Munoz ATTENDING PHYSICIAN STATEMENT I saw and evaluated the patient. I reviewed the resident's note and discussed the case with the resident. I agree with the resident's findings and plan as documented. SUBJECTIVE: pt seen for heroin and alcohol detox- pt had been on subutex, zoloft and concerta until 12/27. Pt states he started bingeing for the last 2 months with alcohol, heroin due to personal stress. OBJECTIVE: Vital Signs - 24 hr 02/12/19 02/12/19 02/12/19 17:14 18:35 21:43 Temperature 98.0 F 98.0 F 98.4 F Pulse Rate 57 L 57 L 52 L Respiratory 18 18 18 Rate Blood Pressure 119/67 119/67 131/80 02/13/19 02/13/19 02/13/19 00:30 03:30 06:38 Temperature 97.6 F Pulse Rate 65 Respiratory 18 19 18 Rate Blood Pressure 129/80 02/13/19 09:16 Temperature 98.4 F Pulse Rate 54 L Respiratory 18 Rate Blood Pressure 108/66 pt with mild tremors of hands a and o X 3 ASSESSMENT AND PLAN: pt to be admitted for alcohol and heroin detox protocols with librium and methadone.
--- NOTE | 2019-02-13 14:35 | EKG ---
Test Reason : Blood Pressure : / mmHG Vent. Rate : 047 BPM Atrial Rate : 047 BPM P-R Int : 178 ms QRS Dur : 084 ms QT Int : 428 ms P-R-T Axes : 058 043 056 degrees QTc Int : 378 ms SINUS BRADYCARDIA WITH SINUS ARRHYTHMIA OTHERWISE NORMAL ECG WHEN COMPARED WITH ECG OF 25-JUL-2017 13:38, VENT. RATE HAS DECREASED BY 26 BPM Confirmed by Sohan Lr ([id number]) on 02/13/2019 2:34:33 PM Referred By: Confirmed By:Sohan Lr
[2019-02-13 14:45] LABS: ALBUMIN 4.1 g/dl (3.4-5.0); BILIRUBIN,TOTAL 0.4 mg/dL (0.2-1); BLOOD UREA NITROGEN 11.7 mg/dL (7-18); CREATININE 0.8 mg/dL (0.55-1.3); TOT PROT 7.7 g/dl (6.4-8.2)
[2019-02-13] MEDS: THIAMINE HCL 100 MG TABLET (FP) PO SCH (22:11)
[2019-02-13] MEDS: SUVOREXANT 10 MG TABLET PO PRN (22:12)
[2019-02-14] MEDS: chlordiazePOXIDE HCL 25 MG CAPSULE PO SCH ×4 (05:25→22:04)
[2019-02-14] MEDS ORDERED: COLLOIDAL OATMEAL 1 BAR EACH TP PRN (08:36)
--- NOTE | 2019-02-14 08:38 | PN ---
[facility] CIWA - CIWA Score Nausea/Vomitin-Mild Nausea/No Vomiting Muscle Tremors: 2 Anxiety: 2 Agitation: 3 Paroxysmal Sweats: 1-Minimal Palms Moist Orientation: 0-Oriented Tacttile Disturbances: 1-Very Mild Itch/Numbness Auditory Disturbances: 0-None Visual Disturbances: 0-None Headache: 0-None Present CIWA-Ar Total Score: 10 [facility] COWS - Scale Resting Pulse: 0= [place] 80 or Below Sweatin= Chills/Flushing Restless Observation: 0= Sits Still Pupil Size: 0= Normal to Room Light Bone or Joint Aches: 1= Mild Discomfort Runny Nose/ Eye Tearin= Nasal Congestion GI Upset > 30mins: 2= Nausea/Diarrhea Tremor Observation of Outstretched Hands: 2= Slight Tremor Visible Yawning Observation: 1= 1-2x During Session Anxiety or Irritability: 2=Irritable/Anxious Goose Flesh Skin: 0=Smooth Skin COWS Score: 10 [facility] Progress Note (SOAP) Subjective: aveeno soap sweating on and off through out the day tremor body aches Objective: 02/14/19 11:08 Vital Signs Temperature 98.5 F 02/14/19 09:08 Pulse Rate 56 L 02/14/19 09:08 Respiratory Rate 18 02/14/19 09:08 Blood Pressure 126/79 02/14/19 09:08 O2 Sat by Pulse Oximetry (%) Laboratory Last Values WBC 5.6 K/mm3 (4.0-10.0) 02/13/19 08:30 RBC 5.07 M/mm3 (4.00-5.60) 02/13/19 08:30 Hgb 15.6 GM/dL (11.7-16.9) 02/13/19 08:30 Hct 46.1 % (35.4-49) 02/13/19 08:30 MCV 90.8 fl (80-96) 02/13/19 08:30 MCH 30.8 pg (25.7-33.7) 02/13/19 08:30 MCHC 33.9 g/dl (32.0-35.9) 02/13/19 08:30 RDW 14.0 % (11.9-15.9) 02/13/19 08:30 Plt Count 204 K/MM3 (134-434) 02/13/19 08:30 MPV 10.0 fl (7.5-11.1) 02/13/19 08:30 Sodium 141 mmol/L (136-145) 02/13/19 08:30 Potassium 5.0 mmol/L (3.5-5.1) 02/13/19 08:30 Chloride 112 mmol/L (98-107) H 02/13/19 08:30 Carbon Dioxide 20 mmol/L (21-32) L 02/13/19 08:30 Anion Gap 10 MMOL/L (8-16) 02/13/19 08:30 BUN 11.7 mg/dL (7-18) 02/13/19 08:30 Creatinine 0.8 mg/dL (0.55-1.3) 02/13/19 08:30 Est GFR (CKD-EPI)AfAm 132.27 02/13/19 08:30 Est GFR (CKD-EPI)NonAf 114.12 02/13/19 08:30 Random Glucose 79 mg/dL (74-106) 02/13/19 08:30 Calcium 9.0 mg/dL (8.5-10.1) 02/13/19 08:30 Total Bilirubin 0.4 mg/dL (0.2-1) 02/13/19 08:30 AST 21 U/L (15-37) 02/13/19 08:30 ALT 26 U/L (13-61) 02/13/19 08:30 Alkaline Phosphatase 88 U/L (45-117) 02/13/19 08:30 Total Protein 7.7 g/dl (6.4-8.2) 02/13/19 08:30 Albumin 4.1 g/dl (3.4-5.0) 02/13/19 08:30 Urine Color Yellow 02/13/19 10:34 Urine Appearance Clear 02/13/19 10:34 Urine pH 8.5 (5.0-8.0) H D 02/13/19 10:34 Ur Specific [place] 1.018 (1.010-1.035) 02/13/19 10:34 Urine Protein Negative (NEGATIVE) 02/13/19 10:34 Urine Glucose (UA) Negative (NEGATIVE) 02/13/19 10:34 Urine Ketones Negative (NEGATIVE) 02/13/19 10:34 Urine Blood Negative (NEGATIVE) 02/13/19 10:34 Urine Nitrite Negative (NEGATIVE) 02/13/19 10:34 Urine Bilirubin Negative (NEGATIVE) 02/13/19 10:34 Urine Urobilinogen 1.0 mg/dL (0.2-1.0) 02/13/19 10:34 Ur Leukocyte Esterase Negative (NEGATIVE) 02/13/19 10:34 RPR Titer Nonreactive (NONREACTIVE) 02/13/19 08:30 lab noted Assessment: 02/14/19 11:09 alcohol and opiate withdrawal sx Plan: continue alcohol and opiate detox
[2019-02-14] MEDS ORDERED: METHADONE HCL 10 MG TABLET (FOR DETOX USE ONLY) PO ONE (10:00)
[2019-02-14] MEDS: PRENATAL VITAMINS W/ FOLIC ACID TABLET (FP) PO SCH (10:03)
[2019-02-14] MEDS: NICOTINE 14 MG/24 HOURS TOPICAL PATCH TD PRN (10:14)
[2019-02-14] MEDS: THIAMINE HCL 100 MG TABLET (FP) PO SCH (22:04)
[2019-02-14] MEDS: SUVOREXANT 10 MG TABLET PO PRN (22:05)
[2019-02-15] MEDS ORDERED: chlordiazePOXIDE HCL 10 MG CAPSULE PO PRN
[2019-02-15] MEDS: chlordiazePOXIDE HCL 10 MG CAPSULE PO SCH ×4 (05:59→22:01)
[2019-02-15] MEDS ORDERED: METHADONE HCL 5 MG TABLET (FOR DETOX USE ONLY) ONE (09:42)
[2019-02-15] MEDS ORDERED: METHADONE HCL 10 MG TABLET (FOR DETOX USE ONLY) ONE (09:42)
[2019-02-15] MEDS ORDERED: METHADONE (DETOX) 10 MG, METHADONE (DETOX) 5 MG PO ONE (10:00)
[2019-02-15] MEDS: PRENATAL VITAMINS W/ FOLIC ACID TABLET (FP) PO SCH (10:14)
[2019-02-15] MEDS: NICOTINE 14 MG/24 HOURS TOPICAL PATCH TD PRN (10:14)
--- NOTE | 2019-02-15 13:01 | PN ---
S CIWA - CIWA Score Nausea/Vomitin-Mild Nausea/No Vomiting Muscle Tremors: 3 Anxiety: 1-Mildly Anxious Agitation: 2 Paroxysmal Sweats: 1-Minimal Palms Moist Orientation: 0-Oriented Tacttile Disturbances: 0-None Auditory Disturbances: 0-None Visual Disturbances: 0-None Headache: 0-None Present CIWA-Ar Total Score: 8 BHS COWS - Scale Resting Pulse: 0= [place] 80 or Below Sweatin= Chills/Flushing Restless Observation: 0= Sits Still Pupil Size: 0= Normal to Room Light Bone or Joint Aches: 1= Mild Discomfort Runny Nose/ Eye Tearin= Nasal Congestion GI Upset > 30mins: 2= Nausea/Diarrhea Tremor Observation of Outstretched Hands: 2= Slight Tremor Visible Yawning Observation: 0= None Anxiety or Irritability: 1=Feels Anxious/Irritable Goose Flesh Skin: 0=Smooth Skin COWS Score: 8 S Progress Note (SOAP) Subjective: 38 years old male admitted on 02/12/19 for alcohol and opiate withdrawal sx discuss medication assisted treatment program that the patient utilizes multiple emergency services for life threatening situations provide hope and possibility of in patient rehab in [facility] Objective: 02/15/19 13:06 Vital Signs Temperature 97.6 F 02/15/19 09:14 Pulse Rate 55 L 02/15/19 09:14 Respiratory Rate 18 02/15/19 09:14 Blood Pressure 104/67 02/15/19 09:14 O2 Sat by Pulse Oximetry (%) Laboratory Last Values WBC 5.6 K/mm3 (4.0-10.0) 02/13/19 08:30 RBC 5.07 M/mm3 (4.00-5.60) 02/13/19 08:30 Hgb 15.6 GM/dL (11.7-16.9) 02/13/19 08:30 Hct 46.1 % (35.4-49) 02/13/19 08:30 MCV 90.8 fl (80-96) 02/13/19 08:30 MCH 30.8 pg (25.7-33.7) 02/13/19 08:30 MCHC 33.9 g/dl (32.0-35.9) 02/13/19 08:30 RDW 14.0 % (11.9-15.9) 02/13/19 08:30 Plt Count 204 K/MM3 (134-434) 02/13/19 08:30 MPV 10.0 fl (7.5-11.1) 02/13/19 08:30 Sodium 141 mmol/L (136-145) 02/13/19 08:30 Potassium 5.0 mmol/L (3.5-5.1) 02/13/19 08:30 Chloride 112 mmol/L (98-107) H 02/13/19 08:30 Carbon Dioxide 20 mmol/L (21-32) L 02/13/19 08:30 Anion Gap 10 MMOL/L (8-16) 02/13/19 08:30 BUN 11.7 mg/dL (7-18) 02/13/19 08:30 Creatinine 0.8 mg/dL (0.55-1.3) 02/13/19 08:30 Est GFR (CKD-EPI)AfAm 132.27 02/13/19 08:30 Est GFR (CKD-EPI)NonAf 114.12 02/13/19 08:30 Random Glucose 79 mg/dL (74-106) 02/13/19 08:30 Calcium 9.0 mg/dL (8.5-10.1) 02/13/19 08:30 Total Bilirubin 0.4 mg/dL (0.2-1) 02/13/19 08:30 AST 21 U/L (15-37) 02/13/19 08:30 ALT 26 U/L (13-61) 02/13/19 08:30 Alkaline Phosphatase 88 U/L (45-117) 02/13/19 08:30 Total Protein 7.7 g/dl (6.4-8.2) 02/13/19 08:30 Albumin 4.1 g/dl (3.4-5.0) 02/13/19 08:30 Urine Color Yellow 02/13/19 10:34 Urine Appearance Clear 02/13/19 10:34 Urine pH 8.5 (5.0-8.0) H D 02/13/19 10:34 Ur Specific [place] 1.018 (1.010-1.035) 02/13/19 10:34 Urine Protein Negative (NEGATIVE) 02/13/19 10:34 Urine Glucose (UA) Negative (NEGATIVE) 02/13/19 10:34 Urine Ketones Negative (NEGATIVE) 02/13/19 10:34 Urine Blood Negative (NEGATIVE) 02/13/19 10:34 Urine Nitrite Negative (NEGATIVE) 02/13/19 10:34 Urine Bilirubin Negative (NEGATIVE) 02/13/19 10:34 Urine Urobilinogen 1.0 mg/dL (0.2-1.0) 02/13/19 10:34 Ur Leukocyte Esterase Negative (NEGATIVE) 02/13/19 10:34 RPR Titer Nonreactive (NONREACTIVE) 02/13/19 08:30 TB (QFT) Incubation (.) 02/12/19 08:40 TB Test (QFT) Nil 0.03 IU/mL (.) 02/12/19 08:40 TB Test (QFT) Mitogen 1.35 IU/mL (.) 02/12/19 08:40 TB Test (QFT) Antigen 0.02 IU/mL (.) 02/12/19 08:40 TB Test (QFT) Negative (Negative) 02/12/19 08:40 TB Positive Criteria (.) 02/12/19 08:40 lab noted Assessment: 02/15/19 13:06 alcohol and opiate withdrawal sx Plan: continue alcohol and opiate detox
[2019-02-15] MEDS: THIAMINE HCL 100 MG TABLET (FP) PO SCH (22:01)
[2019-02-15] MEDS: SUVOREXANT 10 MG TABLET PO PRN (22:02)
[2019-02-16] MEDS: chlordiazePOXIDE HCL 10 MG CAPSULE PO SCH ×2 (05:12→17:02)
[2019-02-16] MEDS: PRENATAL VITAMINS W/ FOLIC ACID TABLET (FP) PO SCH (09:18)
[2019-02-16] MEDS: NICOTINE 14 MG/24 HOURS TOPICAL PATCH TD PRN (09:19)
[2019-02-16] MEDS ORDERED: METHADONE HCL 10 MG TABLET (FOR DETOX USE ONLY) PO ONE (10:00)
[2019-02-16] MEDS ORDERED: NICOTINE 21 MG/24 HOURS TOPICAL PATCH TD SCH (12:45)
--- NOTE | 2019-02-16 13:52 | PN ---
[facility] CIWA - CIWA Score Nausea/Vomitin Muscle Tremors: 1-None Visible, but Clever Anxiety: 2 Agitation: 2 Paroxysmal Sweats: No Perspiration Orientation: 0-Oriented Tacttile Disturbances: 1-Very Mild Itch/Numbness Auditory Disturbances: 1-Very Mild Visual Disturbances: 0-None Headache: 2-Mild CIWA-Ar Total Score: 11 BHS COWS - Scale Resting Pulse: 0= [place] 80 or Below Sweatin= No chills or Flushing Restless Observation: 0= Sits Still Pupil Size: 1= Pupils >than Normal Bone or Joint Aches: 1= Mild Discomfort Runny Nose/ Eye Tearin= Nasal Congestion GI Upset > 30mins: 1= Stomach Cramp Tremor Observation of Outstretched Hands: 1= Tremor Clever, Not Seen Yawning Observation: 1= 1-2x During Session Anxiety or Irritability: 2=Irritable/Anxious Goose Flesh Skin: 0=Smooth Skin COWS Score: 8 [facility] Progress Note (SOAP) Subjective: alert,irritable,anxious,interrupted sleep,pain in the body and back Objective: 02/16/19 13:50 Vital Signs Temperature 97.2 F L 02/16/19 13:48 Pulse Rate 60 02/16/19 13:48 Respiratory Rate 18 02/16/19 13:48 Blood Pressure 105/65 02/16/19 13:48 O2 Sat by Pulse Oximetry (%) Assessment: 02/16/19 13:51 withdrawal symptom Plan: continue detox methadone and librium regimen,discharge in am
[2019-02-16] MEDS: NICOTINE POLACRILEX 2 MG GUM BUC PRN ×2 (13:54→19:31)
[2019-02-16] MEDS: THIAMINE HCL 100 MG TABLET (FP) PO SCH (22:02)
[2019-02-17] MEDS ORDERED: chlordiazePOXIDE HCL 10 MG CAPSULE PO ONE (05:00)
[2019-02-17] MEDS ORDERED: METHADONE HCL 5 MG TABLET (FOR DETOX USE ONLY) PO ONE (06:00)
[2019-02-17] MEDS: NICOTINE POLACRILEX 2 MG GUM BUC PRN (06:45)
[2019-02-17 06:47] VITALS: BP 107/62; PULSE 51; TEMP 96.8
--- NOTE | 2019-02-17 19:44 | DS ---
[facility] Detox Discharge Summary Admission Date: 02/12/19 Discharge Date: 02/17/19 - History Present History: Alcohol Dependence, Opioid Dependence, Sedative Dependence Additional Comments: PATIENT REFERRED TO [facility] ([place], [place]) AND TO [facility] ([place], [place]) FOR AFTERCARE. Pertinent Past History: History Of Personality Disorder, Attention Deficit Hyperactivity Disorder. - Physical Exam Results Vital Signs: Vital Signs Temperature 96.8 F L 02/17/19 06:47 Pulse Rate 51 L 02/17/19 06:47 Respiratory Rate 18 02/17/19 06:47 Blood Pressure 107/62 02/17/19 06:47 O2 Sat by Pulse Oximetry (%) Pertinent Admission Physical Exam Findings: WITHDRAWAL SYMPTOMS. Laboratory Tests 02/12/19 02/13/19 02/13/19 08:40 08:30 08:30 WBC 5.6 RBC 5.07 Hgb 15.6 Hct 46.1 MCV 90.8 MCH 30.8 MCHC 33.9 RDW 14.0 Plt Count 204 MPV 10.0 Sodium 141 Potassium 5.0 Chloride 112 H Carbon Dioxide 20 L Anion Gap 10 BUN 11.7 Creatinine 0.8 Est GFR (CKD-EPI)AfAm 132.27 Est GFR (CKD-EPI)NonAf 114.12 Random Glucose 79 Calcium 9.0 Total Bilirubin 0.4 AST 21 ALT 26 Alkaline Phosphatase 88 Total Protein 7.7 Albumin 4.1 Urine Color Urine Appearance Urine pH Ur Specific Scenic Urine Protein Urine Glucose (UA) Urine Ketones Urine Blood Urine Nitrite Urine Bilirubin Urine Urobilinogen Ur Leukocyte Esterase RPR Titer TB (QFT) Incubation TB Test (QFT) Nil 0.03 TB Test (QFT) Mitogen 1.35 TB Test (QFT) Antigen 0.02 TB Test (QFT) Negative TB Positive Criteria 02/13/19 02/13/19 08:30 10:34 WBC RBC Hgb Hct MCV MCH MCHC RDW Plt Count MPV Sodium Potassium Chloride Carbon Dioxide Anion Gap BUN Creatinine Est GFR (CKD-EPI)AfAm Est GFR (CKD-EPI)NonAf Random Glucose Calcium Total Bilirubin AST ALT Alkaline Phosphatase Total Protein Albumin Urine Color Yellow Urine Appearance Clear Urine pH 8.5 H D Ur Specific Scenic 1.018 Urine Protein Negative Urine Glucose (UA) Negative Urine Ketones Negative Urine Blood Negative Urine Nitrite Negative Urine Bilirubin Negative Urine Urobilinogen 1.0 Ur Leukocyte Esterase Negative RPR Titer Nonreactive TB (QFT) Incubation TB Test (QFT) Nil TB Test (QFT) Mitogen TB Test (QFT) Antigen TB Test (QFT) TB Positive Criteria LABS NOTED. - Treatment Hospital Course: Detox Protocol Followed, Detoxed Safely, Responded well, Discharged Condition Good Patient has Accepted a Rehab Referral to: PT. REFERRED TO [facility] AND [facility] ([place], [place]). - Medication Discharge Medications: Ambulatory Orders Sertraline HCl [Zoloft] 150 mg PO DAILY 06/21/17 Brexpiprazole [Rexulti] 1 mg PO ASDIR 07/13/18 - Diagnosis (1) Alcohol use disorder Status: Acute (2) Benzodiazepine abuse Status: Acute (3) Heroin use disorder, mild, abuse Status: Acute (4) Substance induced mood disorder Status: Acute (5) ADHD Status: Chronic Qualifiers: Attention deficit-hyperactivity disorder type: unspecified Qualified Code(s ): F90.9 - Attention-deficit hyperactivity disorder, unspecified type (6) Personality disorder Status: Suspected (7) Substance-induced sleep disorder Status: Acute - AMA Did Patient Leave Against Medical Advice: No
== END 2019-02-17 09:12 | disposition home or self-care (01) | DRG 773 ==
LOC: YASAS 14:33 → Y3N 21:16
PROVIDERS: ADMIT Surgery; ATTEND Surgery
PROC: HZ2ZZZZ Detoxification Services for Substance Abuse Treatment (ICD-10-PCS; principal; 2019-02-12)
DX: F11.23 Opioid dependence with withdrawal (principal); F10.230 Alcohol dependence with withdrawal, uncomplicated; F13.230 Sedative, hypnotic or anxiolytic dependence with withdrawal, uncomplicated; F19.24 Other psychoactive substance dependence with psychoactive substance-induced mood disorder; F19.282 Other psychoactive substance dependence with psychoactive substance-induced sleep disorder; F90.9 Attention-deficit hyperactivity disorder, unspecified type
CPT/HCPCS: 36415; 80053; 81003; 85027; 86480; 86593; 93005; 93010

== ENCOUNTER 2020-12-13 11:58 | Inpatient (IN) | payer OTHER ==
[2020-12-13] MEDS ORDERED: IBUPROFEN 400 MG TABLET (FP) PO PRN (14:30)
[2020-12-13] MEDS ORDERED: METHOCARBAMOL 500 MG TABLET PO PRN (14:30)
[2020-12-13] MEDS ORDERED: ONDANSETRON *ODT* 4 MG TABLET SL PRN ×2 (14:30→14:44)
[2020-12-13] MEDS ORDERED: MAGNESIUM HYDROX 2400MG/30ML ORAL SUSPENSION 30 ML CUP PO PRN (14:30)
[2020-12-13] MEDS ORDERED: MENTHOL/PHENOL 1 EACH UD MM PRN (14:30)
[2020-12-13] MEDS ORDERED: ACETAMINOPHEN 325 MG TABLET (FP) PO PRN ×2 (14:30)
[2020-12-13] MEDS ORDERED: METHADONE HCL 10 MG TABLET (FOR DETOX USE ONLY) PO ONE (14:30)
[2020-12-13] MEDS ORDERED: BISMUTH SUBSALICYLATE 524 MG/30 ML UD PO PRN (14:30)
[2020-12-13] MEDS ORDERED: MAGNESIUM CITRATE 300 ML BOTTLE PO PRN (14:30)
[2020-12-13] MEDS ORDERED: cloNIDine HCL 0.1 MG TABLET PO PRN (14:30)
[2020-12-13] MEDS ORDERED: MAG HYDROX/AL HYDROX/SIMETH 30 ML UNIT-DOSE CUP PO PRN (14:30)
[2020-12-13 15:33] VITALS: BMI 27.8
[2020-12-13] MEDS ORDERED: hydrOXYzine PAMOATE 25 MG CAPSULE (FP) PO SCH (18:00)
[2020-12-13] MEDS: NICOTINE 21 MG/24 HOURS TOPICAL PATCH TD SCH (18:26)
[2020-12-13] MEDS: diazePAM 5 MG TABLET PO PRN (18:28)
[2020-12-13] MEDS: NICOTINE POLACRILEX 2 MG GUM BUC PRN (18:32)
[2020-12-13] MEDS: THIAMINE HCL 100 MG TABLET (FP) PO SCH (23:14)
[2020-12-13] MEDS: MELATONIN 5 MG TABLETS PO SCH (23:14)
[2020-12-14] MEDS ORDERED: METHADONE HCL 5 MG TABLET (FOR DETOX USE ONLY) ONE (09:12)
[2020-12-14] MEDS ORDERED: METHADONE HCL 10 MG TABLET (FOR DETOX USE ONLY) ONE (09:12)
[2020-12-14] MEDS ORDERED: METHADONE (DETOX) 20 MG, METHADONE (DETOX) 5 MG PO ONE (10:00)
[2020-12-14] MEDS: PRENATAL VITAMINS W/ FOLIC ACID TABLET (FP) PO SCH (10:28)
[2020-12-14] MEDS: NICOTINE 21 MG/24 HOURS TOPICAL PATCH TD SCH (10:28)
[2020-12-14] MEDS: diazePAM 5 MG TABLET PO PRN ×4 (10:31→23:04)
[2020-12-14] MEDS: NICOTINE POLACRILEX 2 MG GUM BUC PRN ×3 (10:34→22:13)
[2020-12-14] MEDS ORDERED: COLLOIDAL OATMEAL 1 BAR EACH TP PRN (10:45)
[2020-12-14] MEDS ORDERED: PANTOPRAZOLE 40 MG TABLET PO ONE (10:45)
[2020-12-14] MEDS: THIAMINE HCL 100 MG TABLET (FP) PO SCH (22:12)
[2020-12-14] MEDS: MELATONIN 5 MG TABLETS PO SCH (22:12)
[2020-12-14] MEDS: CHLORHEXIDINE GLUCONATE 0.12% 15ML CUP MM SCH ×2 (22:14→23:04)
[2020-12-15] MEDS ORDERED: PANTOPRAZOLE 40 MG TABLET PO SCH (07:00)
[2020-12-15] MEDS ORDERED: METHADONE HCL 10 MG TABLET (FOR DETOX USE ONLY) PO ONE (10:00)
[2020-12-15] MEDS: PRENATAL VITAMINS W/ FOLIC ACID TABLET (FP) PO SCH (10:19)
[2020-12-15] MEDS: NICOTINE 21 MG/24 HOURS TOPICAL PATCH TD SCH (10:19)
[2020-12-15] MEDS: NICOTINE POLACRILEX 2 MG GUM BUC PRN ×2 (10:20→13:53)
[2020-12-15] MEDS: diazePAM 5 MG TABLET PO PRN ×3 (10:21→18:54)
[2020-12-15] MEDS: CHLORHEXIDINE GLUCONATE 0.12% 15ML CUP MM SCH ×2 (10:22→22:18)
[2020-12-15 10:34] LABS: BASO % 0.7 % (0-2.0); EOS % 1.5 % (0-4.5); HEMATOCRIT 43.8 % (35.4-49); LYMPH % 21.9 % (8-40); MCH 30.8 pg (25.7-33.7); MCHC 34.3 g/dl (32.0-35.9); MEAN CELL VOLUME 89.8 fl (80-96); MEAN PLT VOLUME 11.3 fl (7.5-11.1); MONO % 10.8 % (3.8-10.2); NEUT % 65.1 % (42.8-82.8); PLATELET COUNT 214 K/MM3 (134-434); RBC 4.88 M/mm3 (4.00-5.60); RDW 14.2 % (11.9-15.9); WHITE BLOOD COUNT 6.2 K/mm3 (4.0-10.0)
[2020-12-15 10:41] LABS: CALCIUM 8.7 mg/dL (8.5-10.1)
[2020-12-15 10:42] LABS: BLOOD UREA NITROGEN 15.8 mg/dL (7-18)
[2020-12-15 10:45] LABS: CREATININE 0.9 mg/dL (0.55-1.3)
[2020-12-15 10:46] LABS: TOT PROT 7.8 g/dl (6.4-8.2)
[2020-12-15 10:47] LABS: BILIRUBIN,TOTAL 0.3 mg/dL (0.2-1)
[2020-12-15 11:32] LABS: ANISOCYTOSIS 0; MACROCYTOSIS 0; PLATELET ESTIMATE NORMAL
[2020-12-15] MEDS: THIAMINE HCL 100 MG TABLET (FP) PO SCH (22:16)
[2020-12-15] MEDS: MELATONIN 5 MG TABLETS PO SCH (22:16)
[2020-12-16] MEDS ORDERED: METHADONE HCL 5 MG TABLET (FOR DETOX USE ONLY) ONE (09:27)
[2020-12-16] MEDS ORDERED: METHADONE HCL 10 MG TABLET (FOR DETOX USE ONLY) ONE (09:27)
[2020-12-16] MEDS ORDERED: METHADONE (DETOX) 10 MG, METHADONE (DETOX) 5 MG PO ONE (10:00)
[2020-12-16] MEDS: NICOTINE POLACRILEX 2 MG GUM BUC PRN ×2 (10:08→14:33)
[2020-12-16] MEDS: NICOTINE 21 MG/24 HOURS TOPICAL PATCH TD SCH (10:08)
[2020-12-16] MEDS: PRENATAL VITAMINS W/ FOLIC ACID TABLET (FP) PO SCH (10:09)
[2020-12-16] MEDS: diazePAM 5 MG TABLET PO PRN ×2 (10:10→14:32)
[2020-12-16] MEDS: CHLORHEXIDINE GLUCONATE 0.12% 15ML CUP MM SCH (10:12)
[2020-12-16] MEDS ORDERED: diazePAM 5 MG TABLET PO ONE (18:45)
[2020-12-16 20:44] VITALS: BP 133/74; PULSE 103; TEMP 97.3
[2020-12-16] MEDS ORDERED: MIRTAZAPINE 15 MG TABLET (FP) PO SCH (22:00)
[2020-12-17 06:07] LABS: SARS-CoV-2 NAA Not Detected (Not Detected)
[2020-12-17] MEDS ORDERED: METHADONE HCL 10 MG TABLET (FOR DETOX USE ONLY) PO ONE (10:00)
[2020-12-18] MEDS ORDERED: METHADONE HCL 5 MG TABLET (FOR DETOX USE ONLY) PO ONE (06:00)
== END 2020-12-16 20:56 | disposition left against medical advice (07) | DRG 770 ==
LOC: YASAS 11:58 → UNDOADMIN 16:22 → Y3N 16:22
PROVIDERS: ADMIT Allergy & Immunology; ATTEND Allergy & Immunology
PROC: HZ2ZZZZ Detoxification Services for Substance Abuse Treatment (ICD-10-PCS; principal; 2020-12-13)
DX: F11.23 Opioid dependence with withdrawal (principal); F10.230 Alcohol dependence with withdrawal, uncomplicated; F17.210 Nicotine dependence, cigarettes, uncomplicated; F19.280 Other psychoactive substance dependence with psychoactive substance-induced anxiety disorder; F32.9 Major depressive disorder, single episode, unspecified; F90.9 Attention-deficit hyperactivity disorder, unspecified type; Z91.5 Personal history of self-harm; Z88.8 Allergy status to other drugs, medicaments and biological substances
CPT/HCPCS: 36415; 80053; 85025; 86780; C9803; U0003; U0005